=== PATIENT | male | born 1995 | race Caucasian/White ===

== ENCOUNTER 2017-07-20 00:10 | Emergency (ER) | payer OTHER ==
[~2017-07-20] VITALS: Ht 182.9 cm; Wt 102.3 kg
[2017-07-20 00:17] VITALS: BP 145/86; TEMP 99
[2017-07-20 01:10] VITALS: PULSE 79
== END 2017-07-20 01:10 | disposition home or self-care (01) ==
LOC: COL.ER 00:10
DX: S61.210A Laceration without foreign body of right index finger without damage to nail, initial encounter (principal); W25.XXXA Contact with sharp glass, initial encounter; Y92.009 Unspecified place in unspecified non-institutional (private) residence as the place of occurrence of the external cause